=== PATIENT | female | born 1985 | race Caucasian/White ===

== ENCOUNTER 2017-09-01 11:08 | Emergency (ER) | payer OTHER ==
[2017-09-01 11:21] VITALS: BP 129/82
[2017-09-01 11:50] LABS: RAPID STREP SCREEN REAGENT QC YELLOW (YELLOW)
--- NOTE | 2017-09-01 12:14 | ED Physician Documentation ---
History of Present Illness - Stated complaint Stated Complaint: SORE THROAT - Chief complaint Chief Complaint: Heent - Additonal information Additional information: hx from pt 31 f sore throat cough congestion since last night son with same more severe and longer might be preg Review of Systems Constitutional: denies: Fever Nose: reports: Congestion Throat: reports: Sore throat Respiratory: reports: Cough : reports: Now EGA (maybe) PD PAST MEDICAL HISTORY - Past Medical History Past Medical History: No - Past Surgical History Past Surgical History: No - Present Medications Home Medications: Ambulatory Orders Medication Instructions Recorded Confirmed No Known Home Medications [No 09/01/17 09/01/17 Known Home Medications] - Allergies Allergies/Adverse Reactions: Allergies Allergy/AdvReac Type Severity Reaction Status Date / Time pseudoephedrine Allergy Unknown Verified 09/01/17 11:21 [From [facility]] - Social History Does the pt smoke?: No Smoking Status: Never smoker Does the pt drink ETOH?: No Does the pt have substance abuse?: No - Immunizations Immunizations are current?: Yes PD ED PE NORMAL - Vitals Vital signs reviewed: Yes - General General: Alert and oriented X 3 - HEENT HEENT: PERRL, Ears normal (dull but not infected), Moist mucous membranes. No: Pharynx benign (erythema no swelling or exudate) - Neck Neck: Supple, no meningeal sign - Cardiac Cardiac: RRR - Respiratory Respiratory: No respiratory distress, Clear bilaterally Results - Vitals Vitals: Vital Signs - 24 hr 09/01/17 11:18 Temperature 36.8 C Heart Rate 81 Respiratory 16 Rate Blood Pressure 129/82 H O2 Saturation 100 Oxygen O2 Source Room air - Labs Labs: Laboratory Tests 09/01/17 09/01/17 11:29 11:44 Ur Specific Pooler 1.020 Urine HCG, Qual NEGATIVE Group A Strep Rapid Negative Departure - Departure Disposition: 01 Home, Self Care Clinical Impression: Viral URI with cough Condition: Good Instructions: ED URI Viral Follow-Up: RANDALL Gonzalez [Provider Group] Comments: The rapid strep test was negative - an official throat culture will be run as well and the ER staff will call you if it is positive and antibiotics are needed The test was negative too - it would be a good idea to recheck another test in 2 weeks if your period does not start For now recommend tylenol as needed for fever or pain, rest, drink plenty of fluids Would not take other medications until you are sure you are not
[2017-09-01 12:15] LABS: HCG UR QUAL NEGATIVE
== END 2017-09-01 12:33 | disposition home or self-care (01) ==
LOC: ED 11:08
DX: J06.9 Acute upper respiratory infection, unspecified (principal); B97.89 Other viral agents as the cause of diseases classified elsewhere
CPT/HCPCS: 81025; 87070; 87430; 99282; 99283

== ENCOUNTER 2017-10-10 17:32 | Emergency (ER) | payer OTHER ==
[2017-10-10 17:39] VITALS: BP 124/93
--- NOTE | 2017-10-10 19:12 | ED Physician Documentation ---
PD HPI URI - Stated complaint Stated Complaint: SORE THROAT/EAR PX - Chief complaint Chief Complaint: Heent - History obtained from History obtained from: Patient - History of Present Illness Timing - onset: Other (Sick for about 2-1/2 days with cough, sore throat, body aches but no fevers.) Review of Systems Constitutional: reports: Myalgias. denies: Fever, Chills Ears: reports: Ear pain Nose: reports: Rhinorrhea / runny nose, Congestion Throat: reports: Sore throat Respiratory: reports: Cough. denies: Dyspnea GI: denies: Abdominal Pain PD PAST MEDICAL HISTORY - Past Medical History Past Medical History: No - Past Surgical History Past Surgical History: No - Present Medications Home Medications: Ambulatory Orders Medication Instructions Recorded Confirmed No Known Home Medications [No 09/01/17 10/10/17 Known Home Medications] - Allergies Allergies/Adverse Reactions: Allergies Allergy/AdvReac Type Severity Reaction Status Date / Time pseudoephedrine Allergy Unknown Verified 10/10/17 17:39 [From [facility]] - Social History Does the pt smoke?: No Smoking Status: Never smoker Does the pt drink ETOH?: Yes ETOH Use: Wine, Beer, Liquor Does the pt have substance abuse?: No - Immunizations Immunizations are current?: Yes - POLST Patient has POLST: No PD ED PE NORMAL - Vitals Vital signs reviewed: Yes - General General: Alert and oriented X 3, No acute distress - HEENT HEENT: PERRL, EOMI, Ears normal, Moist mucous membranes, Pharynx benign - Neck Neck: Supple, no meningeal sign, No bony TTP - Cardiac Cardiac: RRR, No murmur - Respiratory Respiratory: No respiratory distress, Clear bilaterally - Abdomen Abdomen: Non tender - Derm Derm: Normal color, Warm and dry - Extremities Extremities: No edema, No calf tenderness / cord - Neuro Neuro: Alert and oriented X 3, Normal speech Results - Vitals Vitals: Vital Signs - 24 hr 10/10/17 17:36 Temperature 36.3 C L Heart Rate 76 Respiratory 16 Rate Blood Pressure 124/93 H O2 Saturation 100 Oxygen O2 Source Room air Departure - Departure Disposition: Home, Self Care Clinical Impression: Viral URI Condition: Good Record reviewed to determine appropriate education?: Yes Instructions: ED Viral Syndrome Comments: Drink plenty of fluids and return if worse.
== END 2017-10-10 19:17 | disposition home or self-care (01) ==
LOC: ED 17:32
DX: J06.9 Acute upper respiratory infection, unspecified (principal)
CPT/HCPCS: 99282

== ENCOUNTER 2017-12-10 15:29 | Outpatient (CLI) | payer OTHER | END 2017-12-10 15:30 | disposition home or self-care (01) | LOC: LAB 15:29 | PROVIDERS: ATTEND Obstetrics & Gynecology | DX: N96 Recurrent pregnancy loss (principal) | CPT/HCPCS: 36415; 84702 ==

== ENCOUNTER 2017-12-13 10:17 | Outpatient (CLI) | payer OTHER | END 2017-12-13 10:18 | disposition home or self-care (01) | LOC: LAB.N 10:17 | PROVIDERS: ATTEND Obstetrics & Gynecology | DX: Z32.01 Encounter for pregnancy test, result positive (principal) | CPT/HCPCS: 36415; 84702 ==

== ENCOUNTER 2017-12-15 08:00 | Outpatient (CLI) | payer OTHER | END 2017-12-15 08:01 | disposition home or self-care (01) | LOC: LAB.N 08:00 | PROVIDERS: ATTEND Obstetrics & Gynecology | DX: Z32.01 Encounter for pregnancy test, result positive (principal) | CPT/HCPCS: 36415; 84702 ==

== ENCOUNTER 2017-12-22 13:09 | Outpatient (CLI) | payer OTHER ==
--- NOTE | 2017-12-22 15:12 | Ultrasound Report ---
REVISED: REPORT ORIGINALLY SIGNED ON 12/22/2017@1523; ORDERS LINKED ON 2017 jll FIRST TRIMESTER OB ULTRASOUND: 12/22/2017 CLINICAL INDICATION: Positive test. TECHNIQUE: Real-time scanning was performed with account maintenance representative static images obtained. LAST MENSTRUAL PERIOD: 11/09/2017 Clinical Age: 6 weeks 1 day (LMP) US Age: 6 weeks 0 days (CRL) EFW Hadlock: -- EFW% Hadlock: -- Heart Rate: Visualized EDC: 08/16/2018 (LMP) US EDC: 08/17/2018 (CRL) BPD Hadlock: -- HC Hadlock: -- AC Hadlock: -- FL Hadlock: -- Presentation: -- Placental Location: -- Cervical Length: closed Amniotic Fluid: -- FINDINGS The uterus is retroverted. There is a gestational sac within the endometrial canal, with yolk sac and pole visualized. cardiac activity is visualized on cine loops, but an exact heart rate could not be determined on M-mode. By crown rump length, the gestation measures 6 weeks 0 days (6 weeks 1 day by LMP). There is a 1.4 cm perigestational fluid collection, compatible with perigestational hemorrhage. The cervix is closed. The right ovary measures 2.4 x 1.2 x 1.2 cm, and appears unremarkable. The left ovary measures 3.5 x 2.9 x 2.6 cm, and demonstrates a 2.7 cm corpus luteum. No free fluid is present. IMPRESSION: SINGLE VIABLE INTRAUTERINE GESTATION, MEASURING 6 WEEKS 0 DAYS BY CROWN RUMP LENGTH. SMALL PERIGESTATIONAL HEMORRHAGE. TD: 12/22/2017 14:44 [facility]
== END 2017-12-22 13:10 | disposition home or self-care (01) ==
LOC: DI 13:09
PROVIDERS: ATTEND Obstetrics & Gynecology
DX: Z32.01 Encounter for pregnancy test, result positive (principal); O20.9 Hemorrhage in early pregnancy, unspecified; Z3A.01 Less than 8 weeks gestation of pregnancy
CPT/HCPCS: 76801; 76817

== ENCOUNTER 2018-01-10 08:00 | Outpatient (CLI) | payer OTHER ==
[2018-01-10 13:19] LABS: BILIRUBIN,URINE NEGATIVE (NEGATIVE); GLUCOSE, URINE (UA) NEGATIVE (NEGATIVE); KETONES,URINE (UA) NEGATIVE (NEGATIVE); LEUKOCYTE ESTERASE, URINE NEGATIVE (NEGATIVE); NITRITE,URINE NEGATIVE (NEGATIVE); OCCULT BLOOD,URINE NEGATIVE (NEGATIVE); PH,URINE 5.5 PH (5.0-7.5); PROTEIN,URINE NEGATIVE (NEGATIVE); UROBILINOGEN,URINE 0.2 (NORMAL) E.U./dL (NORMAL)
[2018-01-10 13:25] LABS: CLARITY,URINE CLEAR (CLEAR)
[2018-01-10 13:26] LABS: BASOPHILS % (AUTO) 0.2 %; EOSINOPHILS # (AUTO) 0.2 10^3/uL (0.0-0.7); EOSINOPHILS % (AUTO) 1.7 %; HGB - HEMOGLOBIN 12.9 g/dL (12.0-16.0); LYMPHOCYTES % (AUTO) 21.3 %; MEAN CORPUSCULAR HEMOGLOBIN 30.8 pg (27.0-31.0); MEAN CORPUSCULAR VOLUME 90.7 fL (81.0-99.0); MEAN PLATELET VOLUME 10.3 fL (7.9-10.8); MONOCYTES # (AUTO) 0.6 10^3/uL (0.0-1.0); MONOCYTES % (AUTO) 6.5 %; NEUTROPHILS # (AUTO) 6.7 10^3/uL (1.5-6.6); NEUTROPHILS % (AUTO) 70.3 %; PLT - PLATELET COUNT 202 10^3/uL (130-450); RED BLOOD COUNT 4.19 10^6/uL (4.20-5.40); RED CELL DISTRIBUTION WIDTH 12.8 % (12.0-15.0); WHITE BLOOD COUNT 9.5 x10^3/uL (4.8-10.8)
[2018-01-10 14:58] LABS: RBC,URINE 0-5 /HPF (0-5)
[2018-01-10 14:59] LABS: BACTERIA,URINE None Seen /HPF (None Seen); SQUAMOUS EPITHELIAL CELL,UR MOD Squamous (<= Few)
[2018-01-11 09:26] LABS: HEPATITIS C ANTIBODY NON-REACTIVE (NON-REACTIVE)
[2018-01-11 09:27] LABS: HEPATITIS B SURFACE ANTIGEN NON-REACTIVE (NON-REACTIVE)
[2018-01-11 16:52] LABS: HIV AG/AB 4TH GEN NON-REACTIVE (NON-REACTIVE)
== END 2018-01-10 08:01 | disposition home or self-care (01) ==
LOC: LAB.N 08:00
PROVIDERS: ATTEND Obstetrics & Gynecology
DX: Z36.9 Encounter for antenatal screening, unspecified (principal); Z11.3 Encounter for screening for infections with a predominantly sexual mode of transmission
CPT/HCPCS: 36415; 80306; 81001; 81599; 85025; 86592; 86762; 86803; 86850; 86900; 86901; 87340; 87389; 87491; 87591

== ENCOUNTER 2018-01-10 09:47 | Outpatient (CLI) | payer OTHER ==
[2018-01-10 12:54] LABS: MUDS CUTOFF CONCENTRATIONS CUTOFF CONC BELOW:
[2018-01-10 13:44] LABS: AMPHETAMINE SCREEN,URINE NEGATIVE (NEGATIVE); BENZODIAZEPINES SCREEN, URINE NEGATIVE (NEGATIVE); COCAINE SCREEN URINE NEGATIVE (NEGATIVE); METHADONE SCREEN, URINE NEGATIVE (NEGATIVE); METHAMPHETAMINES SCREEN, URINE NEGATIVE (NEGATIVE); OPIATE SCREEN, URINE NEGATIVE (NEGATIVE); OXYCODONE SCREEN, URINE NEGATIVE (NEGATIVE); PROPOXYPHENE SCREEN, URINE NEGATIVE (NEGATIVE); TRICYCLIC ANTIDEPRESSANT,URINE NEGATIVE (NEGATIVE)
== END 2018-01-10 09:48 | disposition home or self-care (01) ==
LOC: LAB.R 09:47
PROVIDERS: ATTEND Obstetrics & Gynecology
DX: Z36.9 Encounter for antenatal screening, unspecified (principal); Z11.3 Encounter for screening for infections with a predominantly sexual mode of transmission
CPT/HCPCS: 80306; 87491; 87591

== ENCOUNTER 2018-01-13 12:58 | Outpatient (CLI) | payer OTHER | END 2018-01-13 12:59 | disposition home or self-care (01) | LOC: DI 12:58 | PROVIDERS: ATTEND Obstetrics & Gynecology | DX: R01.1 Cardiac murmur, unspecified (principal) | CPT/HCPCS: 93306 ==

== ENCOUNTER 2018-02-15 18:34 | Emergency (ER) | payer OTHER ==
[2018-02-15] MEDS ORDERED: METOCLOPRAMIDE 10 MG/2 ML VIAL IVP STA (18:39)
[2018-02-15] MEDS ORDERED: SODIUM CHLORIDE 0.9% 1,000 ML IV ONE (18:39)
[2018-02-15 19:32] LABS: ALBUMIN 3.8 g/dL (3.2-5.5); BILIRUBIN,TOTAL 0.5 mg/dL (0.2-1.0); CALCIUM 9.3 mg/dL (8.5-10.3); CREATININE 0.5 mg/dL (0.4-1.0); TOTAL PROTEIN 7.7 g/dL (6.7-8.2)
--- NOTE | 2018-02-15 19:55 | ED Physician Documentation ---
PD HPI ABD PAIN - Stated complaint Stated Complaint: VOMITING/14 WEEKS - Chief complaint Chief Complaint: Abd Pain - History obtained from History obtained from: Patient, Family - History of Present Illness Timing - onset: Other (She has been having a lot of issues with vomiting in this . She is 14 weeks along in her OB is Dr. Zheng. Her vomiting has been uncontrolled today despite taking Dicl.egis since she has had slightly decreased urinary output. She denies any hematemesis, diarrhea, or abdominal pain. No fevers.) Review of Systems Constitutional: denies: Fever, Chills Cardiac: denies: Chest pain / pressure, Palpitations Respiratory: denies: Dyspnea, Cough GI: reports: Nausea, Vomiting. denies: Abdominal Pain, Diarrhea PD PAST MEDICAL HISTORY - Past Surgical History Past Surgical History: No - Present Medications Home Medications: Ambulatory Orders Medication Instructions Recorded Confirmed Doxylamine/Pyridoxine HCl 10 mg BID 02/15/18 02/15/18 [Diclegis Dr 10-10 mg Tablet] Metoclopramide [Reglan] 10 mg PO Q6H PRN #20 tablet 02/15/18 - Allergies Allergies/Adverse Reactions: Allergies Allergy/AdvReac Type Severity Reaction Status Date / Time pseudoephedrine Allergy Unknown Verified 10/10/17 17:39 [From Sudafed] - Social History Does the pt smoke?: No Smoking Status: Never smoker Does the pt drink ETOH?: Yes Does the pt have substance abuse?: No - Immunizations Immunizations are current?: Yes - POLST Patient has POLST: No PD ED PE NORMAL - Vitals Vital signs reviewed: Yes - General General: Alert and oriented X 3, No acute distress - Abdomen Abdomen: Normal bowel sounds, Soft, Non tender - Female Female : Other (Bedside ultrasound demonstrates single live intrauterine with heart rate of 150 and positive motion.) - Neuro Neuro: Alert and oriented X 3, Normal speech Results - Vitals Vitals: Vital Signs - 24 hr 02/15/18 18:42 Temperature 36.4 C L Heart Rate 89 Respiratory 16 Rate Blood Pressure 124/73 O2 Saturation 100 Oxygen O2 Source Room air - Labs Labs: Laboratory Tests 02/15/18 19:00 Sodium 132 L Potassium 3.5 Chloride 100 L Carbon Dioxide 22 Anion Gap 10.0 BUN 9 Creatinine 0.5 Estimated GFR (MDRD) 144 Glucose 92 Calcium 9.3 Total Bilirubin 0.5 AST 23 ALT 22 Alkaline Phosphatase 52 Total Protein 7.7 Albumin 3.8 Globulin 3.9 Albumin/Globulin Ratio 1.0 Lipase 29 PD MEDICAL DECISION MAKING - ED course ED course: After the administration of IV fluids and IV Reglan she was Feeling much better and passed an oral challenge. Departure - Departure Disposition: Home, Self Care Clinical Impression: Hyperemesis Condition: Good Record reviewed to determine appropriate education?: Yes Instructions: ED Preg Morning Sickness Prescriptions: Metoclopramide [Reglan] 10 mg PO Q6H PRN #20 tablet PRN Reason: Nausea / Vomiting Comments: Call your doctor to arrange a follow-up appointment, make the next available appointment. In the interim, return anytime if worse or if new symptoms develop.
[2018-02-15 20:15] VITALS: BP 115/86
== END 2018-02-15 20:15 | disposition home or self-care (01) ==
LOC: ED 18:34
DX: O21.0 Mild hyperemesis gravidarum (principal); Z3A.14 14 weeks gestation of pregnancy
CPT/HCPCS: 36415; 80053; 83690; 96361; 96374; 99283; J2765

== ENCOUNTER 2018-03-07 10:03 | Outpatient (CLI) | payer OTHER | END 2018-03-07 10:04 | disposition home or self-care (01) | LOC: LAB 10:03 | PROVIDERS: ATTEND Obstetrics & Gynecology | DX: Z13.79 Encounter for other screening for genetic and chromosomal anomalies (principal) | CPT/HCPCS: 36415; 81599; 82105; 82677; 84702; 86336 ==

== ENCOUNTER 2018-03-29 07:42 | Outpatient (CLI) | payer OTHER ==
--- NOTE | 2018-03-29 11:08 | Ultrasound Report ---
Procedure Date: 03/29/2018 Accession Number: [id number] / [id number] Procedure: US - OB Detailed Eval CPT Code: FULL RESULT: EXAM: OB Detailed Eval DATE: 03/29/2018 9:15 AM CLINICAL HISTORY: ENCOUNTER FOR OTHER SPECIFIED SCREENING TECHNIQUE: Real-time scanning was performed with retail customer service representative static images obtained. COMPARISON: Limited reference is made to the first trimester ultrasound 12/22/2017. LAST MENSTRUAL PERIOD: Unknown. Clinical Age: 20 weeks 0 days US Age: 19 weeks 6 days EFW Hadlock: 324 grams Heart Rate: 150 bpm EDC: 08/16/2018 US EDC: 08/17/2018 BPD Hadlock: 46 weeks 5 days; Mean mm 19 HC Hadlock: 19 weeks 6 days; Mean mm 174 AC Hadlock: 20 weeks 3 days; Mean mm 152 FL Hadlock: 19 weeks 4 days; Mean mm 31 Presentation: Variable Placental Location: Anterior Cervical Length: 5.4 cm Amniotic Fluid: KEITH Subjectively normal cm; MVP 6.1 cm FINDINGS: Single live intrauterine gestation in variable position with a normal-appearing anterior placenta without evidence of previa. A three-vessel cord inserts centrally on the placenta. The cervix is closed. Nuchal fold does not appear thickened, 2.5 mm. The following anatomic structures were visualized and appear normal: The intracranial contents, including the ventricles and posterior fossa; the lips and orbits; the spine; the heart, including 4 chamber view and outflow tracts, and diaphragm; the abdominal contents, including the stomach, the bilateral kidneys, and urinary bladder, as well as a normal 3-vessel cord insertion; 4 limbs. IMPRESSION: Single live intrauterine gestation with a sonographic age of 19 weeks and 6 days with a normal anatomic survey as described.
== END 2018-03-29 07:43 | disposition home or self-care (01) ==
LOC: DI 07:42
PROVIDERS: ATTEND Obstetrics & Gynecology
DX: Z36.89 Encounter for other specified antenatal screening (principal)
CPT/HCPCS: 76811

== ENCOUNTER 2018-06-16 11:11 | Outpatient (CLI) | payer OTHER ==
[2018-06-16 12:30] LABS: HGB - HEMOGLOBIN 11.9 g/dL (12.0-16.0); MEAN CORPUSCULAR HEMOGLOBIN 31.8 pg (27.0-31.0); MEAN CORPUSCULAR HGB CONC 35.1 g/dL (32.0-36.0); MEAN CORPUSCULAR VOLUME 90.8 fL (81.0-99.0); MEAN PLATELET VOLUME 8.3 fL (7.9-10.8); RED BLOOD COUNT 3.73 10^6/uL (4.20-5.40); RED CELL DISTRIBUTION WIDTH 12.7 % (12.0-15.0); WHITE BLOOD COUNT 9.5 x10^3/uL (4.8-10.8)
== END 2018-06-16 11:12 | disposition home or self-care (01) ==
LOC: LAB 11:11
PROVIDERS: ATTEND Obstetrics & Gynecology
DX: Z34.90 Encounter for supervision of normal pregnancy, unspecified, unspecified trimester (principal)
CPT/HCPCS: 36415; 82950; 85027; 86850

== ENCOUNTER 2018-07-07 08:06 | Outpatient (CLI) | payer OTHER | END 2018-07-07 08:07 | disposition home or self-care (01) | LOC: LAB 08:06 | PROVIDERS: ATTEND Obstetrics & Gynecology | DX: R73.02 Impaired glucose tolerance (oral) (principal) | CPT/HCPCS: 36415; 82951; 82952 ==

== ENCOUNTER 2018-07-18 15:30 | Outpatient (CLI) | payer OTHER | END 2018-07-18 15:31 | LOC: LAB.R 15:30 | PROVIDERS: ATTEND Obstetrics & Gynecology | DX: Z36.9 Encounter for antenatal screening, unspecified (principal); N89.8 Other specified noninflammatory disorders of vagina | CPT/HCPCS: 87081; 87480; 87510; 87660 ==

== ENCOUNTER 2018-07-31 12:49 | Outpatient (CLI) | payer OTHER | END 2018-07-31 12:50 | disposition home or self-care (01) | LOC: NS 12:49 | PROVIDERS: ATTEND Registered Nurse | DX: Z71.3 Dietary counseling and surveillance (principal); O24.410 Gestational diabetes mellitus in pregnancy, diet controlled | CPT/HCPCS: 97802 ==

== ENCOUNTER 2018-08-03 15:07 | Outpatient (CLI) | payer OTHER ==
[2018-08-03 15:58] VITALS: BP 119/82
[2018-08-03 16:25] LABS: RUPTURE OF MEMBRANES PLUS NEGATIVE (NEGATIVE)
--- NOTE | 2018-08-09 09:23 | PROVIDER PROGRESS NOTE ---
Subjective - Prog Note Date Prog Note Date: 08/03/18 Prog Note Time: 17:00 - Subjective Subjective: NST for GDM at 38w 1d Suspects ROM Afeb No palpable Contrax, NT, normal tone Chiller Operator Fluid on exam; 1cm/0% effaced; -3 ROM plus Neg NST Reacive 140-150 occas contrax Pt sent home
== END 2018-08-03 16:45 | disposition home or self-care (01) ==
LOC: WFO 15:07 → FBP 15:09 → WFO 16:45
PROVIDERS: ATTEND Obstetrics & Gynecology
DX: O24.419 Gestational diabetes mellitus in pregnancy, unspecified control (principal); Z3A.38 38 weeks gestation of pregnancy
CPT/HCPCS: 84112; 99213

== ENCOUNTER 2018-08-09 14:51 | Outpatient (CLI) | payer OTHER ==
[2018-08-09 15:09] VITALS: BP 129/84
== END 2018-08-09 16:05 | disposition home or self-care (01) ==
LOC: WFO 14:51 → FBP 14:54 → WFO 16:05
PROVIDERS: ATTEND Obstetrics & Gynecology
DX: Z34.83 Encounter for supervision of other normal pregnancy, third trimester (principal)
CPT/HCPCS: 99213

== ENCOUNTER 2018-08-14 16:23 | Outpatient (CLI) | payer OTHER ==
[2018-08-14 17:18] LABS: BILIRUBIN,URINE NEGATIVE (NEGATIVE); GLUCOSE, URINE (UA) NEGATIVE (NEGATIVE); KETONES,URINE (UA) 40 mg/dL (NEGATIVE); LEUKOCYTE ESTERASE, URINE NEGATIVE (NEGATIVE); NITRITE,URINE NEGATIVE (NEGATIVE); OCCULT BLOOD,URINE SMALL (NEGATIVE); PROTEIN,URINE TRACE mg/dL (NEGATIVE); UROBILINOGEN,URINE 0.2 (NORMAL) E.U./dL (NORMAL)
[2018-08-14 17:32] LABS: BACTERIA,URINE None Seen /HPF (None Seen); CLARITY,URINE CLEAR (CLEAR); MUCUS,URINE Few Strands; SQUAMOUS EPITHELIAL CELL,UR RARE Squamous (<= Few)
[2018-08-14 17:33] VITALS: BP 119/76
[2018-08-14 17:38] LABS: RUPTURE OF MEMBRANES PLUS NEGATIVE (NEGATIVE)
== END 2018-08-14 17:57 | disposition home or self-care (01) ==
LOC: WFO 16:23 → FBP 16:33 → WFO 17:57
PROVIDERS: ATTEND Obstetrics & Gynecology
DX: Z34.83 Encounter for supervision of other normal pregnancy, third trimester (principal)
CPT/HCPCS: 81001; 84112; 87086; 99213

== ENCOUNTER 2018-08-18 07:32 | Inpatient (IN) | payer OTHER ==
--- NOTE | 2018-08-17 15:43 | PREOP HISTORY & PHYSICAL ---
DATE OF SERVICE: 08/18/2018 Physician: Tammi Ellsworth DO FACOG IDENTIFICATION: This 32-year-old G4, P1-0-2-1 with a 40-2/7-week intrauterine . LMP is 11/09/2017 and with a corresponding EDC of 08/16/2018; 6-week ultrasound was consistent with dates. HISTORY OF PRESENT ILLNESS: This is a patient of [facility] who has had an essentially unremarkable . She did have an upper respiratory infection that required her to be on amoxicillin and Ventolin HFA at 33 weeks' gestation. She also was positive for GDMA1. Her sugars have been in good control. Patient is currently 39 weeks and 6 days. Her cervix is 2 cm dilated, 60% effaced, and -2 station, is mildly posterior and firm. Patient has verbalized her desire for elective induction of labor. We will proceed to a Cytotec induction on 08/18/2018 should the patient still be . I would anticipate giving her epidural and then artificially rupturing her membranes after the Cytotec was completed. The patient is otherwise doing well, and baby jerry Montanez is moving a lot. She denies any nausea, vomiting, fevers, chills, or vaginal bleeding or loss of fluid. She did present last night to Labor and Delivery and was found to have a negative ROM plus test and was subsequently sent home. Her nonstress test yesterday was reactive and category 1. PAST MEDICAL HISTORY: None. PAST SURGICAL HISTORY: D and C in 2006. ALLERGIES: SUDAFED, HER HEART RACES AND SHE ALMOST PASSES OUT. MEDICATIONS: vitamins. SOCIAL HISTORY: She denies any tobacco, alcohol, or illicit drug use. Her is Gm, and her oldest child is Adalberto. This is a baby boy with anticipated name of Tarik. She does use [email or web address] in [place] as a preferred pharmacy of choice. PAST OBSTETRICAL HISTORY: Two spontaneous abortions and one a 39-week spontaneous vaginal delivery of older son, Adalberto. Baby weighed 7 pounds, 12 ounces. PAST GYNECOLOGICAL HISTORY: She denies any abnormal Paps or sexually transmitted diseases. FAMILY HISTORY: Noncontributory. REVIEW OF SYSTEMS: Negative unless otherwise stated. PHYSICAL EXAMINATION VITAL SIGNS: Height is 62 inches, weighs 168 pounds, BMI is 30.84, blood pressure 120/84. GENERAL: The patient is a well-developed, well-nourished, female, in no apparent distress. She is alert and oriented x3. HEENT: Within normal limits. HEART: Regular. No murmurs or rubs. LUNGS: Lungs are clear to auscultation bilaterally. ABDOMEN: Gravid, nontender. Fundal height 37 cm. Baby is vertex on bedside ultrasound with a grossly normal KEITH. Again, cervical examination showed she was 2, 16, -2. LABORATORY: Data reveal that her LMP is 11/01/2017, giving an EDC of 08/16/2018. Chili rump length at 6 weeks on 12/22/2017 is consistent with dates. She is rubella immune, A positive, antibody screen negative, hepatitis B surface antigen nonreactive, RPR nonreactive, hepatitis C is nonreactive. HIV nonreactive. A 01/10/2018 pap smear as well as high-risk HPV are both negative. Gonorrhea and chlamydia are both negative on the same day. A 03/07/2018 quad screen is negative. On 06/16/2018, one-hour GTT was elevated 163. Antibody screen is negative. Three-hour GTT on 07/09/2018 showed a fasting of 87, 1 hour 188, 2-hour 173, and 3-hour of 151. Her anatomical cervix is consistent with dates and within normal limits. Placenta is noted to be anterior. The cervix measured 5.4 cm with a MVP of 6.1 cm, 3-vessel umbilical cord. GBS negative. ASSESSMENT 1. A 32-year-old G4, P1-0-2-1 with a 40-2/7-week intrauterine . 2. Cervix remote from delivery. 3. Gestational diabetes mellitus A1. PLAN 1. We will proceed to a scheduled induction of labor on 08/18/2018 via Cytotec and later artificial rupture of membranes. 2. Anticipate giving the patient an epidural for pain control. 3. Expect spontaneous vaginal delivery. TD: 08/15/2018 12:05 JANIA
[~2018-08-18 07:32] MED LIST: LACTATED RINGERS 1,000 ML IV SCH; ONDANSETRON 4 MG/2 ML VIAL IVP PRN; SODIUM CHLORIDE FLUSH 0.9% 10 ML SYRINGE IVP PRN; SODIUM CHLORIDE FLUSH 0.9% 10 ML SYRINGE IVP SCH; fentaNYL 100 MCG/2 ML VIAL IVP PRN
[2018-08-18] MEDS ORDERED: LIDOCAINE-MPF 1% 5 ML VIAL ONE (09:07)
[2018-08-18] MEDS: miSOPROStol 100 MCG TABLET BC SCH ×3 (09:21→15:57)
[2018-08-18 09:26] LABS: BASOPHILS % (AUTO) 0.4 %; EOSINOPHILS # (AUTO) 0.1 10^3/uL (0.0-0.7); EOSINOPHILS % (AUTO) 1.2 %; HGB - HEMOGLOBIN 11.7 g/dL (12.0-16.0); LYMPHOCYTES # (AUTO) 1.4 10^3/uL (1.5-3.5); LYMPHOCYTES % (AUTO) 12.8 %; MEAN CORPUSCULAR HEMOGLOBIN 31.7 pg (27.0-31.0); MEAN CORPUSCULAR HGB CONC 34.7 g/dL (32.0-36.0); MEAN CORPUSCULAR VOLUME 91.3 fL (81.0-99.0); MEAN PLATELET VOLUME 9.2 fL (7.9-10.8); MONOCYTES # (AUTO) 0.8 10^3/uL (0.0-1.0); MONOCYTES % (AUTO) 6.9 %; NEUTROPHILS # (AUTO) 8.9 10^3/uL (1.5-6.6); NEUTROPHILS % (AUTO) 78.7 %; PLT - PLATELET COUNT 200 10^3/uL (130-450); RED CELL DISTRIBUTION WIDTH 13.8 % (12.0-15.0); WHITE BLOOD COUNT 11.3 x10^3/uL (4.8-10.8)
[2018-08-18] MEDS ORDERED: OXYTOCIN/SODIUM CHLORIDE 500 ML IV ONE (09:37)
[2018-08-18] MEDS ORDERED: MINERAL OIL LIGHT 10 ML MC ONE (09:38)
[2018-08-18] MEDS ORDERED: LIDOCAINE 1% 50 ML MDV ONE (09:38)
--- NOTE | 2018-08-18 11:13 | PROVIDER PROGRESS NOTE ---
Subjective - Prog Note Date Prog Note Date: 08/18/18 Prog Note Time: 11:10 - Subjective Subjective: Patient doing well, at bedside. Good FM. Denies VB or LOF. Cytotec given at about 09:20. Objective - Vital Signs/Intake & Output Vital Signs: Vital Signs x48h Temp Pulse Resp BP BP Pulse Ox 08/18/18 09:26 98.1 F 95 18 120/84 H 100 08/18/18 07:49 97.7 F 108 H 18 132/87 H 99 - Objective General Appearance: positive: No acute distress Neurologic/Psychiatric: positive: Oriented x3 Comments/Other: FHT's 130's basline, reactive and category 1. No devang decels but questionable decel vs baseline change at 11:05. Irregular contractions, about Q 3-6 min CVE deferred (last exam 08/15/2018 2/60/-2) - Lab Results Fish Bones: 08/18/18 09:10 08/18/18 09:10 Other Labs: Lab Results x24hrs 08/18/18 08/18/18 Range/Units 09:10 09:10 WBC 11.3 H (4.8-10.8) x10^3/uL RBC 3.70 L (4.20-5.40) 10^6/uL Hgb 11.7 L (12.0-16.0) g/dL Hct 33.8 L (37.0-47.0) % MCV 91.3 (81.0-99.0) fL MCH 31.7 H (27.0-31.0) pg MCHC 34.7 (32.0-36.0) g/dL RDW 13.8 (12.0-15.0) % Plt Count 200 (130-450) 10^3/uL MPV 9.2 (7.9-10.8) fL Neut # (Auto) 8.9 H (1.5-6.6) 10^3/uL Lymph # (Auto) 1.4 L (1.5-3.5) 10^3/uL Whiteside # (Auto) 0.8 (0.0-1.0) 10^3/uL Eos # (Auto) 0.1 (0.0-0.7) 10^3/uL Baso # (Auto) 0.0 (0.0-0.1) 10^3/uL Absolute Nucleated RBC 0.00 x10^3/uL Nucleated RBC % 0.0 /100WBC Glucose 86 (70-100) mg/dL Assessment/Plan - Problem List (1) Elective induction of labor planned Impression: 32 yo with a 40w2d IUP Desired elective induction of labor Cytotec given Reassuring and maternal status Plan to recheck cervix about 13:30 and hopefully AROM at that time Epidural for pain control Plan for Labor - Plan For Labor I expect patient to be DC'd or transferred within 96 hours.: Yes Plan for Labor: Cytotec ripening with AROM
[2018-08-18] MEDS ORDERED: fent/BUPIV 2 MCG/0.125% 250 ML EP ONE (12:56)
--- NOTE | 2018-08-18 13:59 | PROVIDER PROGRESS NOTE ---
Labor Progress Note - Uterine Monitoring Uterine Monitoring Mode: positive: External toco Contraction Frequency (min/apart): Q3 min Contraction Intensity: positive: Moderate Uterine Resting Tone: positive: Soft - Monitoring Monitor Mode: positive: External ultrasound Heart Rate Variability: positive: Moderate (6-25 bmp) Accelerations: positive: Present, 15x15 Decelerations: positive: None Strip Review: positive: Category I - Vaginal Exam Dilation (in cm): 4 Effacement (%): 60 Station: -2 Cervical Position: Posterior - Labor Progress Note Labor Progress Note/Additional Text: 32 yo with a 40w2d IUP Labor after 1 dose of cytotec 50 mcg buccal Reassuring and maternal status AROM- clear fluid 8th IV placed (kept falling out) Epidural in place and working well Will give another dose of cytotec 50 mcg buccal Anticipate
[2018-08-18] MEDS ORDERED: ROPIVACAINE 0.2% PF 20 ML AMPULE ONE ×2 (14:14→17:24)
[2018-08-18] MEDS ORDERED: ROPIVACAINE 0.2% PF 10 ML AMPULE EPI ONE (14:25)
[2018-08-18] MEDS ORDERED: HYDROCORTISONE/PRAMOXINE 10 GM PR PRN (19:23)
[2018-08-18] MEDS ORDERED: MAGNESIUM HYDROXIDE 2,400 MG/30 ML UDC PO PRN (19:23)
--- NOTE | 2018-08-18 19:28 | DELIVERY NOTE ---
Delivery Note - Labor Labor: positive: Other (Induced by cytotec, AROM clear) - Delivery Method Infant Delivery Method: positive: Vacuum assist (Indication: NRFHT's with late decels to the 60's. Bowel and bladder empty. Epidural in place and working. Cervix completely dilated and effaced, +3 station. ALEXANDRO. One vacuum placement, over 1 pull, good progress and delivered. No pop-offs.) - Cervical Ripening Method Cervical Ripening Method: positive: Other (Cytotec 50 mcg buccal x 2) - Presentation Presentation: positive: Vertex, ALEXANDRO - left occiput anterior - Nuchal Cord Nuchal Cord: positive: None - Amniotic Fluid Description Amniotic Fluid Description: positive: Clear - Vacuum Use Indication for Vacuum Use: positive: Suspicion of immediate or potential compromise Type of Vacuum Cup: positive: Cup: Rigid (Disk) Vacuum Extraction: positive: Successful Number of pop-offs: 0 - Laceration Laceration: positive: None - Delivery Outcome Delivery Outcome: positive: Livebirth - : positive: Placed in direct skin contact with mother, Bulb syringe sex: positive: Male : 8 : 8 - Cord Cord: positive: 3 vessels - Placenta Placenta: positive: Intact, Spontaneous - Estimated Blood Loss Estimated Blood Loss (in cc): 50 - Post Delivery Events Post Delivery Events: positive: No post delivery events - Delivery Comments (Free Text/Narrative) Delivery Comments (Free Text/Narrative): 32 yo with a 40w2d IUP presented for an elective induction of labor. Sherry received cytotec 50 mcg buccally x 2. Epidural placement x 2. High block with first epidural to T4. AROM showed clear fluid. Sherry progressed nicely. Late decels with overall good fdc variability seen at 8 cm dilation. Decels progressed during the 2nd stage. VAVD performed and viable male , "Tarik." Apgars 8/8. Bulb suction. Intact perineum. EBL 50 mL. No complications.
[2018-08-18] MEDS ORDERED: OXYTOCIN/SODIUM CHLORIDE 500 ML IV SCH (20:00)
[2018-08-18] MEDS: ACETAMINOPHEN 325 MG TABLET PO PRN (22:23)
[2018-08-18] MEDS: CELECOXIB 100 MG CAPSULE PO SCH (22:23)
[2018-08-18] MEDS: DOCUSATE SODIUM 100 MG CAPSULE PO SCH (22:24)
[2018-08-19] MEDS: ACETAMINOPHEN 325 MG TABLET PO PRN ×2 (07:05→13:31)
[2018-08-19] MEDS: HYDROcod/ACETAM 5/325 MG TABLET PO SCH ×2 (08:00→17:01)
[2018-08-19] MEDS: DOCUSATE SODIUM 100 MG CAPSULE PO SCH ×2 (09:40→21:47)
[2018-08-19] MEDS: CELECOXIB 100 MG CAPSULE PO SCH ×2 (09:40→21:47)
--- NOTE | 2018-08-19 11:36 | PROVIDER PROGRESS NOTE ---
Subjective - Prog Note Date Prog Note Date: 08/19/18 Prog Note Time: 11:34 - Subjective Pt reports feeling: Improved (Sherry sitting in bed, baby asleep on her chest. Some nausea when she ambulates. Normal lochia, ambulating well. Urinating without difficulty. Pain controlled with tylenol. Desires to go home tomorrow since her mother will be on antibiotics x 24 hours.) Objective - Vital Signs/Intake & Output Reviewed Vital Signs: Yes Vital Signs: Vital Signs x48h Temp Pulse Resp BP Pulse Ox 08/19/18 09:00 98.2 F 73 16 119/78 100 08/19/18 07:00 98.1 F 67 16 126/81 H 100 Intake & Output: Intake & Output 08/16/18 08/17/18 08/18/18 08/19/18 23:59 23:59 23:59 23:59 Intake Total 650 Output Total 600 Balance -600 650 - Objective General Appearance: positive: No acute distress Eyes Bilateral: positive: Normal inspection Abdomen: positive: Non-tender (Firm fundus) Skin: positive: Color nml Neurologic/Psychiatric: positive: Oriented x3, Sensation nml, Mood/affect nml - Lab Results Fish Bones: 08/18/18 09:10 08/18/18 09:10 Assessment/Plan - Problem List (1) Vacuum extractor delivery, delivered Impression: 32 yo S/p VAVD, PPD #1 Normal recovery Continue current care Anticipate discharge to home tomorrow
--- NOTE | 2018-08-19 12:24 | DISCHARGE SUMMARY ---
DATE OF ADMISSION: 08/18/2018 DATE OF DISCHARGE: 08/20/2018 ADMISSION DIAGNOSES 1. A 35-year-old, G4, P1-0-2-1 with a 40 and 2/7 week intrauterine . 2. Elective induction of labor. DIAGNOSES ON DISCHARGE 1. A 32-year-old G4, P2-0-2-2, status post vacuum-assisted vaginal delivery on 08/18/2018. 2. Normal recovery. BRIEF HISTORY: This is a patient of [facility] who presented for elective induction of labor on 08/18/2018. Patient's cervical examination earlier that week was 2 cm dilation, 60% effaced, and -2 station. Cervix was noted to be firmish and posterior. She was admitted and given a dose of 50 mg of Cytotec. This was repeated one more time. Patient did receive an epidural for pain control. Unfortunately, the first epidural was too high in the level of T4. She was not having any issues with breathing. Epidural was shut off at that time. Artificial rupture of membranes revealed clear fluid. She did get a second dose of Cytotec secondary to increasingly longer frequency of contractions. Some late decelerations were noted and she was examined and found to be 8 cm dilated. During the second stage, deep decelerations were noted down to the 60s. She underwent a vacuum-assisted vaginal delivery. It was a very smooth vacuum delivery with no pop offs and only 1 pull. Apgars were 8 and 8 at 1 and 5 minutes respectively. She delivered a viable male infant named Tarik. He weighed 8 pounds 0 ounces. Patient delivered over an intact perineum. EBL remarkably small at 50 mL There were no complications. The course has been unremarkable. She is ambulating and tolerating a regular diet. Her pain is controlled with oral Tylenol and she is urinating without difficulty. She will be discharged to home on 08/20/2018. She will be offered prescriptions for Motrin and Vicodin. She is to see me at [facility] in 3 weeks for routine visit. I will discuss contraception at that time. Patient should call should she have any worsening fevers, chills, abdominal pain or vaginal bleeding. TD: 08/19/2018 11:53 JANIA
[2018-08-20] MEDS: HYDROcod/ACETAM 5/325 MG TABLET PO SCH ×2 (00:13→08:15)
[2018-08-20 08:55] VITALS: BP 122/83
[2018-08-20] MEDS: CELECOXIB 100 MG CAPSULE PO SCH (09:14)
[2018-08-20] MEDS: DOCUSATE SODIUM 100 MG CAPSULE PO SCH (09:14)
--- NOTE | 2018-08-20 11:49 | PROVIDER PROGRESS NOTE ---
Subjective - Prog Note Date Prog Note Date: 08/20/18 Prog Note Time: 11:47 - Subjective Pt reports feeling: Improved Subjective: Sherry in bed, breast feeding baby Tarik. and 4 yo son at bedside. States she is improving. Lochia decreasing. Ambulating and tolerating regular diet. Urinating without difficulty. Pain controlled with oral meds. Notes a little dizziness with vicodin when she ambulates. Desires to go home. Mom went to ER and Dx'd with pneumonia and strep. Also worrisome that masses found on mom's chest Xray. Mom flying back home tomorrow for care. Objective - Vital Signs/Intake & Output Vital Signs: Vital Signs x48h Temp Pulse Resp BP Pulse Ox 08/20/18 08:00 97.5 F L 64 14 122/83 H 100 Intake & Output: Intake & Output 08/17/18 08/18/18 08/19/18 08/20/18 23:59 23:59 23:59 23:59 Intake Total 650 Output Total 600 Balance -600 650 - Objective General Appearance: positive: No acute distress Eyes Bilateral: positive: Normal inspection Abdomen: positive: Non-tender (Firm fundus) Skin: positive: Color nml Neurologic/Psychiatric: positive: Oriented x3, Mood/affect nml - Lab Results Fish Bones: 08/18/18 09:10 08/18/18 09:10 Assessment/Plan - Problem List (1) Vacuum extractor delivery, delivered Impression: 32 yo S/p VAVD, PPD #2 Normal recovery Discharge to home Will give a mask for Sherry to take home to her mom Rx for motrin and vicodin for pain control at home Return to see me at [facility] in 3 weeks Call for worsening fevers, chills, abdominal pain or vaginal bleeding DEERS form signed for [employer]'s health insurance No lifting > 1 gallon of milk. May increase activity as tolerated. Discharge Plan Disposition: 01 Home, Self Care Condition: Good Diet: Regular Activity Restrictions: Activity as Tolerated Shower Restrictions: No Driving Restrictions: Yes (No driving after vicodin) Weight Bearing: Full Weight Additional Instructions or Follow Up instructions: No lifting > 1 gallon of milk for now. May increase activity as tolerated. Showers for now. No driving after taking vicodin. Return to see me in 3 weeks at [facility]. Rx for at home pain control (motrin and vicodin). Call for worsening fevers, chills, abdominal pain or vaginal bleeding. No Smoking: If you smoke, Please STOP! Call for help.
--- NOTE | 2018-08-20 14:14 | Labor Flowsheet ---
Labor Flowsheet Datetime Report Generated by CPN: 08/20/2018 14:13 Datetime: 08/20/2018 08:06 VITAL SIGNS NBP Sys/Keely/Mean (mmHg): 122 : 83 : 93 Pulse: 66 LaborFlag: Labor Datetime: 08/19/2018 07:09 SpO2 (%): 100 Datetime: 08/18/2018 18:50 Stage 2 Comments: placenta delivered at 1850 - intact Datetime: 08/18/2018 18:45 UTERINE ACTIVITY Monitor Mode: External Frequency (min): 2 Quality: Strong Duration (sec): 40-60 Pattern: Normal: <= 5 Contractions in 10 Minutes Resting Tone (Palpate): Relaxed Contraction Comments: pushing with each contraction - delivery at 1845 ASSESSMENT A Monitor Mode: External US FHR Baseline Rate : 140 Variability: Minimal - Undetectable to <=5 bpm Accelerations: None Decelerations: Late; Prolonged Actions for Decelerations: Provider Notified Category: Category II Comments: MD Tete at bedside Oxygen Amount (LPM): 10 Oxygen Method: Non-Rebreather Datetime: 08/18/2018 18:42 Vacuum: On Datetime: 08/18/2018 18:38 STAGE 2 Pushing: Coached on Pushing; Urge to Push Pushing Position: Pushing with Contractions Pushing Progress: Descent with Pushing Datetime: 08/18/2018 18:35 Communication Comments: tete at bedside Datetime: 08/18/2018 18:29 Patient Care Comments: 400 urinary output Datetime: 08/18/2018 18:25 VAGINAL EXAM Dilatation (cm): 10.0 Effacement (%): 100 Station: 2 Exam by: Meyes Cervix, Position: Anterior Datetime: 08/18/2018 18:18 Medication Comments: bolus Datetime: 08/18/2018 18:16 Patient Position/Activity: Left Tilt Datetime: 08/18/2018 18:15 FHR Baseline Changes: No Baseline Change Datetime: 08/18/2018 17:59 Monitor Interventions for UA: Madelia Adjusted Datetime: 08/18/2018 17:53 COMMUNICATION Communication: Call/Page Placed to Provider Provider Notified (Name): Tete, MD Datetime: 08/18/2018 17:51 Vaginal Bleeding: Normal Show Cervix, Consistency: Soft Datetime: 08/18/2018 17:45 Epidural Procedure: Loading Dose Anesthesia Comments: remainder of loading dose Datetime: 08/18/2018 17:29 Epidural Positioning: Sitting Datetime: 08/18/2018 17:28 PAIN Pain Scale: 7 Pain Assessment Comments: hernández at bedside. epidural replacement discussed. pt agrees. Datetime: 08/18/2018 17:21 Temperature (C): 36.7 Datetime: 08/18/2018 17:15 Monitor Interventions for FHR: Ultrasound Adjusted Datetime: 08/18/2018 17:00 Anesthesia Level Check: T10- Umbilicus Datetime: 08/18/2018 16:45 Epidural Procedure Other: Single Dose Datetime: 08/18/2018 16:27 Pain Presence: Intermittent Pain Type: Cramping Datetime: 08/18/2018 16:02 Respirations: 18 Datetime: 08/18/2018 16:00 MEDICATIONS Cervical Ripening Agents: Cytotec @ 50 Datetime: 08/18/2018 15:48 I/O Interventions: Cantu Cath Inserted Datetime: 08/18/2018 13:53 Membrane Status: Ruptured Membranes Rupture Method: Artificial Amniotic Fluid Color: Clear Amniotic Fluid Amount: Moderate Amniotic Fluid Odor: None Datetime: 08/18/2018 13:23 ANESTHESIA Anesthesia Plans: Epidural Datetime: 08/18/2018 13:17 Stage of : Labor Temperature Route: Oral Datetime: 08/18/2018 13:14 PROCEDURE TIME OUT Procedure Verify: Correct Patient Identity; Accurate Procedure Consent Form; Agreement on Procedure to be Done; Correct Patient Position; Safety Precautions Based on Patient History or Medication Use Datetime: 08/18/2018 12:55 PATIENT CARE IV/Blood Work: IV Started Datetime: 08/18/2018 12:44 Pain Coping: Talking Through Contractions
== END 2018-08-20 13:10 | disposition home or self-care (01) | DRG 807 ==
LOC: WFO 07:32 → FBP 07:33 → OBSVTOIN 13:59
PROVIDERS: ADMIT Obstetrics & Gynecology; ATTEND Obstetrics & Gynecology
PROC: 10D07Z6 Extraction of Products of Conception, Vacuum, Via Natural or Artificial Opening (ICD-10-PCS; principal; 2018-08-18)
PROC: 10907ZC Drainage of Amniotic Fluid, Therapeutic from Products of Conception, Via Natural or Artificial Opening (ICD-10-PCS; 2018-08-18)
DX: O24.429 Gestational diabetes mellitus in childbirth, unspecified control (principal); O76 Abnormality in fetal heart rate and rhythm complicating labor and delivery; Z37.0 Single live birth; Z3A.40 40 weeks gestation of pregnancy
CPT/HCPCS: 36415; 82947; 85025

== ENCOUNTER 2018-09-19 16:20 | Emergency (ER) | payer OTHER ==
[2018-09-19] MEDS ORDERED: IBUPROFEN 800 MG TABLET PO STA (16:48)
--- NOTE | 2018-09-19 16:58 | ED Physician Documentation ---
History of Present Illness - Stated complaint Stated Complaint: FEMALE - Chief complaint Chief Complaint: Wound - History obtained from History obtained from: Patient - History of Present Illness Timing: How many weeks ago (1) Pain level max: 8 Pain level now: 8 Improved by: nothing Worsened by: palpation - Additonal information Additional information: 32-year-old female presents to the emergency department the right breast pain. She is currently breast-feeding. She is approximately 4 weeks to a healthy baby. She was treated initially with dicloxacillin for mastitis which resolved. Has now been on dicloxacillin for 5 days and has worsening of her symptoms. Sent here for possible abscess. Review of Systems Ten Systems: 10 systems reviewed and negative Constitutional: denies: Fever, Chills Respiratory: denies: Cough GI: denies: Nausea, Vomiting Skin: denies: Rash Musculoskeletal: denies: Neck pain, Back pain Neurologic: denies: Headache PD PAST MEDICAL HISTORY - Past Medical History Past Medical History: No - Past Surgical History Past Surgical History: No - Present Medications Home Medications: Ambulatory Orders Medication Instructions Recorded Confirmed Dicloxacillin [Dynapen] 250 mg PO Q6H 09/19/18 09/19/18 Hydrocodone/Acetaminophen 1 - 2 each PO Q6H PRN #10 tablet 09/19/18 [Hydrocodon-Acetaminophen 5-325] Ibuprofen [Motrin] 400 mg PO ONCE 09/19/18 09/19/18 - Allergies Allergies/Adverse Reactions: Allergies Allergy/AdvReac Type Severity Reaction Status Date / Time pseudoephedrine Allergy Unknown Verified 09/19/18 16:31 [From [facility]] - Living Situation Living Situation: reports: With family Living Arrangement: reports: At home - Social History Does the pt smoke?: No Smoking Status: Never smoker Does the pt drink ETOH?: Yes Does the pt have substance abuse?: No - Immunizations Immunizations are current?: Yes - POLST Patient has POLST: No PD ED PE NORMAL - Vitals Vital signs reviewed: Yes - General General: Alert and oriented X 3, No acute distress - HEENT HEENT: Moist mucous membranes - Neck Neck: Supple, no meningeal sign - Cardiac Cardiac: RRR - Respiratory Respiratory: No respiratory distress, Clear bilaterally - Abdomen Abdomen: Soft, Non tender, Non distended - Derm Derm: Warm and dry, Other (cellulitis R breast with palpable abscess on lateral aspect) - Neuro Neuro: Alert and oriented X 3 - Psych Psych: Normal mood, Normal affect Results - Vitals Vitals: Oxygen O2 Source Room air - Rads (name of study) breast US Radiology: Prelim report reviewed, EMP read contemporaneously, See rad report (Large complex right breast collection just deep to the skin measuring 7.1 x 3.8 x 5.6 cm presumably representing large breast abscess) PD MEDICAL DECISION MAKING - ED course Complexity details: re-evaluated patient, considered differential, d/w patient ED course: D/w Dr. Ellsworth (OB) and recommends general surgery for drainage. Discuss with Dr. Silver who came and drained the abscess. Patient has antibiotics at home. She is well-appearing, nontoxic. Patient counseled regarding signs and symptoms for which I believe and urgent re-evaluation would be necessary. Patient with good understanding of and agreement to plan and is comfortable going home at this time This document was made in part using voice recognition software. While efforts are made to proofread this document, sound alike and grammatical errors may occur. Departure - Departure Disposition: 01 Home, Self Care Clinical Impression: Breast abscess Condition: Good Instructions: ED Abscess IandD Follow-Up: ELISSA GREER [Primary Care Provider] - Tammi Ellsworth DO [Provider Admit Priv/Credential] - Within 3 Days (for wound check) Prescriptions: Hydrocodone/Acetaminophen [Hydrocodon-Acetaminophen 5-325] 1 - 2 each PO Q6H PRN #10 tablet PRN Reason: pain Comments: Start the antibiotics as prescribed by Dr. Ellsworth today. Return if you worsen. Follow-up with Dr. Ellsworth in 2-3 days for packing removal and wound check. Discharge Date/Time: 09/19/18 20:07
--- NOTE | 2018-09-19 17:53 | Ultrasound Report ---
Reason: R breast pain, swelling, possible abscess Procedure Date: 09/19/2018 Accession Number: [id number] / [id number] Procedure: US - Breast Unilateral Limited CPT Code: FULL RESULT: EXAM: RIGHT BREAST ULTRASOUND. EXAM DATE: 09/19/2018 05:37 PM. CLINICAL HISTORY: Right breast pain and swelling. COMPARISON: None. TECHNIQUE: Static and real-time imaging of the right breast was obtained in the area of clinical concern. FINDINGS: Ultrasound imaging of the right breast in the 8:00 region demonstrates a large complex avascular multiloculated appearing collection just deep to the skin and containing mobile debris within it. The collection is seen measuring upwards of 7.1 x 3.8 x 5.6 cm concerning for abscess. There is superimposed skin thickening. IMPRESSION: Large complex right breast collection just deep to the skin measuring 7.1 x 3.8 x 5.6 cm presumably representing large breast abscess. RADIA
[2018-09-19] MEDS ORDERED: LIDOCAINE 2%-EPI 1:100000 20 ML MDV SUBQ STA (18:21)
--- NOTE | 2018-09-19 19:25 | CONSULTATION NOTE ---
Referring Provider Consult Date: 09/19/18 Chief Complaint - Chief Complaint Chief Complaint: Breast abscess History of Present Illness - History of Present Illness HPI Comment/Other: 32 yo woman c/o 1 week of slowly worsening swelling and erythema of right breast. Denies any medical problems, surgeries, allergies, medications. History - Past Medical History MRSA Hx?: No - Family & Social History Living arrangement: At home Living Situation: With family - POLST Patient has POLST: No Meds/Allgy - Home Medications Home Medications: Ambulatory Orders Medication Instructions Recorded Confirmed Dicloxacillin [Dynapen] 250 mg PO Q6H 09/19/18 09/19/18 Ibuprofen [Motrin] 400 mg PO ONCE 09/19/18 09/19/18 - Allergies Allergies/Adverse Reactions: Allergies Allergy/AdvReac Type Severity Reaction Status Date / Time pseudoephedrine Allergy Unknown Verified 09/19/18 16:31 [From [facility]] Exam - Vital Signs Vital Signs: Vital Signs x48h Temp Pulse Resp BP Pulse Ox 09/19/18 18:38 81 17 123/74 99 09/19/18 16:28 37.7 C H 111 H 18 131/83 H 100 - Physical Exam General Appearance: positive: No acute distress Eyes Bilateral: positive: Normal inspection ENT: positive: ENT inspection nml Neck: positive: Nml inspection Respiratory: positive: Chest non-tender Cardiovascular: positive: Regular rate & rhythm Abdomen: positive: Non-tender Back: positive: Nml inspection Skin: positive: Warm, Other (erythema and fluctuance upper, outer quadrant right breast) Extremities: positive: Non-tender Neurologic/Psychiatric: positive: Oriented x3 Conclusion/Plan - Diagnosis Diagnosis: right breast abscess - Plan Plan: Abscess drained in the ER with local anesthetic. ~30 ml purulent fluid obtained. Lightly packed with gauze. Plan to continue pt's antibiotics due to extensive erythema. Pt will go home now and follow up with her OB. Instructed to leave dressing in place for 2 days, then remove it and the packing. At that point, wash daily with soap and water and dress with a simple bandage.
[2018-09-19 19:49] VITALS: BP 121/85
== END 2018-09-19 20:07 | disposition home or self-care (01) ==
LOC: ED 16:20
DX: O91.12 Abscess of breast associated with the puerperium (principal)
CPT/HCPCS: 10060; 76642; 99283; A9270

== ENCOUNTER 2024-01-10 22:52 | Emergency (ER) | payer OTHER ==
[2024-01-10 23:16] VITALS: O2SAT 100
--- NOTE | 2024-01-10 23:56 | ED Physician Documentation ---
History of Present Illness - Stated complaint Stated Complaint: DIZZY/NAUSEA/DAVILA - Chief complaint Chief Complaint: Neuro - History obtained from History obtained from: Patient - History of Present Illness Timing: How many weeks ago (1.5) - Additonal information Additional information: 38-year-old female presents for 1.5 weeks of lightheadedness, intermittent dizzy sensation, and frontal headaches. Patient states that she is in the process of being evaluated by her primary care physician for this complaint, however she was told that if her symptoms do not improve by the end of the weekend she should come to the emergency department for evaluation. Patient states that symptoms seem to come and go without exacerbating or alleviating factors. Reports a history of iron deficiency anemia and reports chronic use of iron supplements. Also reports history of rheumatoid arthritis on leflunomide Review of Systems Constitutional: denies: Fever, Chills, Fatigue Cardiac: denies: Chest pain / pressure, Palpitations, Calf pain Respiratory: denies: Dyspnea, Cough, Wheezing GI: denies: Abdominal Pain, Nausea, Vomiting, Constipation, Diarrhea : reports: Frequency. denies: Dysuria, Hesitancy Neurologic: reports: Headache, Other (dizziness). denies: Generalized weakness, Focal weakness, Numbness, Difficulty speaking, Near syncope, Syncope, Head injury PD PAST MEDICAL HISTORY - Past Medical History Past Medical History: Yes Musculoskeletal: Rheumatoid arthritis - Past Surgical History Past Surgical History: No - Present Medications Home Medications: Ambulatory Orders Medication Instructions Recorded Confirmed Dicloxacillin [Dynapen] 250 mg PO Q6H 09/19/18 09/19/18 Hydrocodone/Acetaminophen 1 - 2 each PO Q6H PRN #10 tablet 09/19/18 [Hydrocodon-Acetaminophen 5-325] Ibuprofen [Motrin] 400 mg PO ONCE 09/19/18 09/19/18 - Allergies Allergies/Adverse Reactions: Allergies Allergy/AdvReac Type Severity Reaction Status Date / Time pseudoephedrine Allergy Unknown Verified 01/10/24 22:59 [From [facility]] - Social History Does the pt smoke?: No Smoking Status: Never smoker Does the pt drink ETOH?: Yes Does the pt have substance abuse?: No - Immunizations Immunizations are current?: Yes - POLST Patient has POLST: No PD ED PE NORMAL - Vitals Vital signs reviewed: Yes - General General: Alert and oriented X 3, No acute distress, Well developed/nourished - HEENT HEENT: Atraumatic, PERRL, EOMI, Ears normal, Moist mucous membranes - Neck Neck: Supple, no meningeal sign - Cardiac Cardiac: RRR, Strong equal pulses - Respiratory Respiratory: No respiratory distress, Clear bilaterally - Abdomen Abdomen: Soft, Non tender, Non distended - Derm Derm: Normal color, Warm and dry, No rash - Extremities Extremities: No deformity, No tenderness to palpate, Normal ROM s pain, No edema - Neuro Neuro: Alert and oriented X 3, 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, No motor deficit, Normal speech - Psych Psych: Normal mood, Normal affect Results - Vitals Vitals: Vital Signs - 24 hr 01/10/24 01/11/24 22:59 02:28 Temperature 36.9 C Heart Rate 74 74 Respiratory 16 16 Rate Blood Pressure 150/90 H 155/102 H O2 Saturation 100 100 Oxygen O2 Source Room air - Labs Labs: Laboratory Tests 01/10/24 01/10/24 01/11/24 00:11 00:11 00:20 WBC 10.2 RBC 4.43 Hgb 13.3 Hct 40.5 MCV 91.4 MCH 30.0 MCHC 32.8 RDW 11.9 L Plt Count 186 MPV 11.8 H Neut # (Auto) 6.0 Lymph # (Auto) 2.7 [place] # (Auto) 0.9 Eos # (Auto) 0.6 Baso # (Auto) 0.1 Absolute Nucleated RBC 0.00 Nucleated RBC % 0.0 Platelet Estimate NORMAL (130-450,000) Platelet Morphology 1+ GIANT PLATELETS Sodium 137 Potassium 4.1 Chloride 106 Carbon Dioxide 24 Anion Gap 7.0 BUN 14 Creatinine 0.6 Estimated GFR (MDRD) 112 Glucose 108 H Calcium 10.0 Magnesium 2.0 Total Bilirubin 0.4 AST 27 ALT 46 Alkaline Phosphatase 67 Total Protein 6.9 Albumin 4.5 Globulin 2.4 Albumin/Globulin Ratio 1.9 TSH 4.30 Urine Color YELLOW Urine Clarity CLEAR Urine pH 6.0 Ur Specific [place] >=1.030 H Urine Protein NEGATIVE Urine Glucose (UA) NEGATIVE Urine Ketones NEGATIVE Urine Occult Blood NEGATIVE Urine Nitrite NEGATIVE Urine Bilirubin NEGATIVE Urine Urobilinogen 0.2 (NORMAL) Ur Leukocyte Esterase NEGATIVE Ur Microscopic Review NOT INDICATED Urine Culture Comments NOT INDICATED Urine HCG, Qual NEGATIVE PD Medical Decision Making - ED course Complexity details: reviewed results, re-evaluated patient, considered differential, d/w patient ED course: Well-appearing patient with 1.5 weeks of gradually worsening symptoms. NIH 0, neurologically intact, ambulatory in the emergency department without difficulty. No obvious physical exam abnormalities. Since headache has been worsening in intensity will order CT brain. Laboratory work is reviewed, unremarkable. Despite history of iron deficiency anemia patient's hemoglobin is within normal limits with normal MCV, electrolytes are within normal limits, kidney function normal, liver enzymes within normal limits. CT brain negative for acute abnormalities. Patient resting comfortably in bed. Informed patient of all lab and imaging findings as well as importance of continuing to follow-up with PCP to get to the bottom of her symptoms. Patient's primary care physician is at [facility] and she was given a copy of her lab and imaging findings to bring to her next PCP appointment. Departure - Departure Disposition: 01 Home, Self Care Clinical Impression: Headache, Weakness Condition: Stable Instructions: ED Headache Migraine Comments: Your laboratory work and CT imaging today were all normal. Your hemoglobin was within normal limits and your electrolytes were also within normal limits. I do not know the cause of your symptoms, however your workup today is reassuring at this time. Please bring the results of your workup here to your primary care physician's appointment. Forms: PCP List Discharge Date/Time: 01/11/24 02:28
[2024-01-11 00:16] LABS: BASOPHILS # (AUTO) 0.1 10^3/uL (0.0-0.1); BASOPHILS % (AUTO) 0.6 %; EOSINOPHILS # (AUTO) 0.6 10^3/uL (0.0-0.7); EOSINOPHILS % (AUTO) 5.7 %; HCT - HEMATOCRIT 40.5 % (37.0-47.0); HGB - HEMOGLOBIN 13.3 g/dL (12.0-16.0); LYMPHOCYTES # (AUTO) 2.7 10^3/uL (1.5-3.5); MEAN CORPUSCULAR HGB CONC 32.8 g/dL (32.0-36.0); MEAN CORPUSCULAR VOLUME 91.4 fL (81.0-99.0); MEAN PLATELET VOLUME 11.8 fL (7.9-10.8); MONOCYTES # (AUTO) 0.9 10^3/uL (0.0-1.0); MONOCYTES % (AUTO) 8.6 %; NEUTROPHILS % (AUTO) 58.9 %; PLT - PLATELET COUNT 186 10^3/uL (130-450); RED BLOOD COUNT 4.43 10^6/uL (4.20-5.40); RED CELL DISTRIBUTION WIDTH 11.9 % (12.0-15.0); WHITE BLOOD COUNT 10.2 x10^3/uL (4.8-10.8)
--- NOTE | 2024-01-11 00:23 | CT Report ---
PROCEDURE: Head WO INDICATIONS: 1.5WKS WORSENING HEADACHS TECHNIQUE: Noncontrast 4.5 mm thick angled axial sections acquired from the foramen magnum to the vertex. For r adiation dose reduction, the following was used: automated exposure control, adjustment of mA and/or kV according to patient size. COMPARISON: None. FINDINGS: Image quality: Excellent. CSF spaces: Basal cisterns are patent. No extra-axial fluid collections. Ventricles are normal in size and shape. Brain: No midline shift. No intracranial masses or hemorrhage. Jerez-white matter interface is norm al. Skull and face: Calvarium and visualized facial bones are intact, without suspicious lesions. Sinuses: Visualized sinuses and mastoids are clear. IMPRESSION: No acute intracranial pathology. Reviewed by: Miroslava Thompson MD on 01/11/2024 12:22 AM PDT Approved by: Miroslava Thompson MD on 01/11/2024 12:22 AM PDT Station ID: [id number]
[2024-01-11 00:39] LABS: ALBUMIN 4.5 g/dL (3.2-5.5); ALBUMIN/GLOBULIN RATIO 1.9 (1.0-2.2); BILIRUBIN,TOTAL 0.4 mg/dL (0.2-1.0); CREATININE 0.6 mg/dL (0.6-1.3); POTASSIUM 4.1 mmol/L (3.5-4.5); TOTAL PROTEIN 6.9 g/dL (6.4-8.9)
[2024-01-11 00:42] LABS: PLATELET ESTIMATE, MANUAL NORMAL (130-450,000) (NORMAL); PLATELET MORPHOLOGY 1+ GIANT PLATELETS (NORMAL); THYROID STIMULATING HORMONE 4.3 uIU/mL (0.34-5.60)
[2024-01-11 00:49] LABS: BILIRUBIN,URINE NEGATIVE (NEGATIVE); GLUCOSE, URINE (UA) NEGATIVE (NEGATIVE); KETONES,URINE (UA) NEGATIVE (NEGATIVE); LEUKOCYTE ESTERASE, URINE NEGATIVE (NEGATIVE); NITRITE,URINE NEGATIVE (NEGATIVE); OCCULT BLOOD,URINE NEGATIVE (NEGATIVE); PROTEIN,URINE NEGATIVE (NEGATIVE); UROBILINOGEN,URINE 0.2 (NORMAL) E.U./dL (NORMAL)
[2024-01-11 00:56] LABS: CLARITY,URINE CLEAR (CLEAR); HCG UR QUAL NEGATIVE
[2024-01-11] MEDS: KETOROLAC 15 MG/ML VIAL IVP STA (01:33)
[2024-01-11] MEDS: SODIUM CHLORIDE 0.9% 1,000 ML IV STA (01:33)
[2024-01-11 02:36] VITALS: BP 155/102
== END 2024-01-11 02:28 | disposition home or self-care (01) ==
LOC: ED 22:52
DX: R51.9 Headache, unspecified (principal); R53.1 Weakness
CPT/HCPCS: 36415; 80053; 81001; 81003; 81025; 83735; 84443; 85025; 87086; 93005; 96374; 99283